=== PATIENT | male | born 1940 | race Caucasian/White ===

== ENCOUNTER 2017-12-26 15:55 | Inpatient (IN) | payer MEDICARE ==
[2017-12-26] MEDS ORDERED: Acetaminophen 325 MG TAB PO PRN (16:35)
[2017-12-26] MEDS ORDERED: Milk Of Magnesia 30 ML UDCUP PO PRN (16:35)
[2017-12-26] MEDS ORDERED: Bisacodyl 5 MG TAB PO PRN (16:35)
[2017-12-26 18:30] LABS: Troponin I 0.012 ng/mL (< 0.028)
[2017-12-26 19:12] VITALS: BMI 20.1
[2017-12-26 20:12] LABS: Troponin I Less than 0.010 ng/mL (< 0.028)
[2017-12-26] MEDS: Atorvastatin Calcium 40 MG TAB PO SCH (20:42)
[2017-12-26] MEDS ORDERED: Sodium Chloride 0.9% 500 ML IV SCH (21:00)
--- NOTE | 2017-12-26 21:20 | HP ---
PRESENTING COMPLAINT: "I have balance problems." HISTORY OF PRESENT ILLNESS: Mr. Romain Cordova is a 77-year-old male with a past medical history of hypertension , hyperlipidemia, recently diagnosed dementia (2 months ago) and shingles on treatment, who presented to the emergency room from [place] as a transfer after his niece found him unable to express himself. He reports he has had progressively worsening difficulty expressing himself today, he was blanking out , felt dizzy and had balance issues; he then came to [facility] where he had a CT brain done, which was unremarkable; however, his physical examination showed several defects in movements, he failed vwqdzp-jh-[id number] alternating movements and hbbz-nw-clez test and was also unsteady on his feet due to concern for posterior circulation cerebrovascular accident, he was sent to [facility] Emergency Room. He denies fevers, chills, trauma, or loss of consciousness. PAST MEDICAL HISTORY: Hypertension, hyperlipidemia, dementia. PAST SURGICAL HISTORY: None. FAMILY HISTORY: Reviewed and noncontributory. SOCIAL HISTORY: Does not drink alcohol, smoke cigarettes, or use illicit drugs. ALLERGIES: None. CODE STATUS: FULL. REVIEW OF SYSTEMS: Ten-point review of systems was negative. PHYSICAL EXAMINATION: VITAL SIGNS: Stable. GENERAL: Sitting in bed in no acute distress. HEENT: Normocephalic, atraumatic. Not pale, anicteric. PERRLA. EOMI. RESPIRATORY: Vesicular breath sounds bilaterally. No wheezes, rales, or rhonchi. CARDIOVASCULAR: S1, S2 only. No focal deficits. ABDOMEN: Bowel sounds positive, not tender, not distended, no hepatomegaly. Vesicular rash in left upper quadrant. GENITOURINARY: Deferred. MUSCULOSKELETAL: No skeletal abnormalities moving all extremities. NEUROLOGIC: Alert and oriented x2. No obvious focal deficits, but unable to perform [id number]-[id number] alternating movements of his hands. DIAGNOSTIC DATA: Unremarkable imaging and EKG noncontributory. ASSESSMENT AND PLAN: 1. Ataxia. He has sudden onset of this earlier today around 10:00 a.m. The main concern is for posterior circulation ischemic event. CT head has been nonrevealing, so he will require an MRI brain. We will also obtain an echo, TTE , lipid profile, and TSH. We will also start him on aspirin, high dose statin. Obtain neurology consult with PT/OT/speech language therapy. We will also monitor him on telemetry. 2. Hypertension. Blood pressure currently controlled. We will resume home medications once confirmed. 3. Hyperlipidemia. Continue statin. Follow up lipid profile. 4. Shingles. It was diagnosed a week ago and he was prescribed Ganciclovir, but yet to start. We will start while he is in hospital. 5. Dementia, recently diagnosed. We will ensure delirium precautions while in hospital. He has no behavioral problems. BENJAMIN
[2017-12-26] MEDS: Sodium Chloride 0.9% 1,000 ML IV SCH (21:33)
[2017-12-26] MEDS: valACYclovir 500 MG TAB PO SCH (21:34)
[2017-12-26] MEDS: Donepezil HCl 10 MG TAB PO SCH (21:34)
[2017-12-27 04:56] LABS: #Lymphocytes 0.6 thou/uL (1.20-3.40); #Monocytes 0.6 thou/uL (0.11-0.59); #Neutrophils 4.5 thou/uL (1.40-6.50); %Basophils 0.4 % (0.0-1.0); %Eosinophils 0.9 % (0.0-10.0); %Lymphocytes 9.9 % (21.0-51.0); %Monocytes 9.8 % (0.0-10.0); Hemoglobin 13.5 g/dL (14.0-18.0); Mean Corpuscular HGB CONC 34.1 g/dL (32.0-36.0); Mean Corpuscular Volume 90.8 fl (80.0-94.0); Mean Platelet Volume 6.5 fL (7.4-10.4); Platelet Count 132 thou/uL (130-400); RBC Distribution Width 11.8 % (11.5-14.5); Red Blood Cell (RBC) Count 4.35 mill/uL (4.70-6.10); White Blood Cell (WBC) Count 5.7 thou/uL (4.8-10.8)
[2017-12-27 05:11] LABS: Triglycerides 193 mg/dL (Less than 150)
[2017-12-27 05:22] LABS: ALT (SGPT) 28 U/L (8-55); AST (SGOT) 28 U/L (5-34); Albumin 3.9 g/dL (3.4-4.8); Alkaline Phosphatase 106 U/L (40-150); Anion Gap 13 mmol/L (10-20); BUN (Urea Nitrogen) 18 mg/dL (8.4-25.7); Bilirubin, Total 0.8 mg/dL (0.2-1.2); Calc. Creatinine Clearance 36 mL/min (70-130); Calcium 8.7 mg/dL (7.8-10.44); Carbon Dioxide 25 mmol/L (23-31); Cardiac Risk 3.8 (Less than 4.5); Chloride 107 mmol/L (98-107); Cholesterol 119 mg/dl (< 200 Desired); Estimated GFR-MDRD 45; Globulin 2.4 g/dL (2.4-3.5); Glucose 167 mg/dL (83-110); HDL Cholesterol 31 mg/dL (>60 Neg Risk); Potassium 3.9 mmol/L (3.5-5.1); Protein, Total 6.3 g/dL (5.8-8.1); Sodium 141 mmol/L (136-145)
[2017-12-27 06:04] LABS: LDL Cholesterol, Calculated 49 mg/dL
[2017-12-27] MEDS: valACYclovir 500 MG TAB PO SCH ×2 (08:48→21:24)
[2017-12-27] MEDS: Amlodipine 5 MG TAB PO SCH (08:48)
[2017-12-27] MEDS: Aspirin 325 mg Enteric Coated Tablet PO SCH (08:49)
--- NOTE | 2017-12-27 10:40 | CON ---
DATE OF CONSULTATION: 12/27/2017 CONSULTING PHYSICIAN: Hospital Service. IMPRESSION: 1. Possible cerebellar stroke. 2. Hypertension. 3. Hyperlipidemia. 4. Mild dementia. PLAN: 1. MRI of the brain. 2. Carotid Doppler. 3. Echocardiogram. Mr. Cordova is a 77-year-old man, who transferred over from [place] with a reported recent onset of ataxia. He was thought to have a bit of dysmetria on the left. His initial CT scan done at [facility] was unremarkable. He is without any particular complaints this morning. PAST MEDICAL HISTORY: Coronary artery disease, cardiomyopathy, shingles, COPD, carpal tunnel syndrom e. PAST SURGICAL HISTORY: CABG. ALLERGIES: LATEX and PENICILLIN. SOCIAL HISTORY: Unremarkable. FAMILY HISTORY: Noncontributory. REVIEW OF SYSTEMS: He had no complaints of headache, nausea, vomiting, dizziness, chest pain. PHYSICAL EXAMINATION: GENERAL: He is a thin elderly gentleman, sitting up in bed, in no distress. VITAL SIGNS: Pulse 70, respirations 18, blood pressure 164/68. He is afebrile. HEENT: Pupils equal and reactive. Conjunctivae clear. Oropharynx is clear. NECK: Supple. EXTREMITIES: No cyanosis. NEUROLOGIC EXAM: He was alert and cooperative. Speech was fluent and clear. Cranial nerves were in tact without any facial asymmetry. Motor exam showed good antigravity strength in all 4 extremities. Ivmohi-xp-zlsa movements were smooth and no tremor was present. Plantar responses were downgoing. IMAGING: EKG shows normal sinus rhythm. SUMMARY: This is an elderly man, who presented with acute ataxia, which at this point appears to be better. I agree with the plan of workup.
--- NOTE | 2017-12-27 11:14 | PDOC.PN ---
- Subjective Encounter Start Date: 12/27/17 Encounter Start Time: 11:19 Subjective: No acute events overnight. -: No new complaints. - Objective Resuscitation Status: Resuscitation Status FULL:Full Resuscitation MAR Reviewed: Yes Vital Signs & Weight: Vital Signs (12 hours) Temp Pulse Pulse Resp BP BP BP 12/27/17 08:48 91 144/73 H 12/27/17 07:52 98.1 F 91 18 12/27/17 07:30 83 144/73 H 165/79 H 12/27/17 03:27 99 F 83 16 12/26/17 23:47 86 16 BP Pulse Ox 12/27/17 08:48 12/27/17 07:52 144/73 H 95 12/27/17 07:30 12/27/17 03:27 151/60 H 97 12/26/17 23:47 128/85 97 Weight Admit Weight 140 lb 4.8 oz Weight 140 lb 4.8 oz I&O: 12/26/17 12/27/17 12/28/17 06:59 06:59 06:59 Intake Total 900 Balance 900 Result Diagrams: 12/27/17 04:25 12/27/17 04:25 Phys Exam - Physical Examination Constitutional: NAD HEENT: PERRLA, moist MMs, sclera anicteric Neck: supple, full ROM Respiratory: no wheezing, no rales, no rhonchi, clear to auscultation bilateral Cardiovascular: RRR, no significant murmur, no rub Gastrointestinal: soft, non-tender, no distention, positive bowel sounds Musculoskeletal: no edema, pulses present Neurological: non-focal, normal sensation, moves all 4 limbs Psychiatric: normal affect, A&O x 3 Skin: no rash, normal turgor Dx/Plan (1) Ataxia Code(s): R27.0 - ATAXIA, UNSPECIFIED Status: Acute Comment: Improved but still w cerebellar deficits. Concern for possible posterior circulation CVA. Started on ASA and Statins. MRI brain and ECHo pending. Neurology on board. (2) Herpes zoster Code(s): B02.9 - ZOSTER WITHOUT COMPLICATIONS Status: Acute Qualifiers: Herpes zoster complications: without complications Qualified Code(s): B02.9 - Zoster without complications Comment: Continue Valacylovir. (3) Dementia Code(s): F03.90 - UNSPECIFIED DEMENTIA WITHOUT BEHAVIORAL DISTURBANCE Status: Acute Qualifiers: Dementia type: Alzheimer's disease Alzheimer's disease onset: unspecified onset Dementia behavioral disturbance: without behavioral disturbance Qualified Code(s): G30.9 - Alzheimer's disease, unspecified; F02.80 - Dementia in other diseases classified elsewhere without behavioral disturbance; F02.80 - Dementia in other diseases classified elsewhere without behavioral disturbance; F02.80 - Dementia in other diseases classified elsewhere without behavioral disturbance Comment: Son reports increased confusion over months. Does well when he sticks to his dauily routine. (4) HLD (hyperlipidemia) Code(s): E78.5 - HYPERLIPIDEMIA, UNSPECIFIED Status: Acute Qualifiers: Hyperlipidemia type: pure hyperglyceridemia Qualified Code(s): E78.1 - Pure hyperglyceridemia (5) HTN (hypertension) Code(s): I10 - ESSENTIAL (PRIMARY) HYPERTENSION Status: Acute Qualifiers: Hypertension type: essential hypertension Qualified Code(s): I10 - Essential (primary) hypertension Comment: Continue Amlodipine (6) Acute on chronic renal failure Code(s): N17.9 - ACUTE KIDNEY FAILURE, UNSPECIFIED; N18.9 - CHRONIC KIDNEY DISEASE, UNSPECIFIED Status: Acute Qualifiers: Acute renal failure type: unspecified Chronic kidney disease stage: stage 3 (moderate) Qualified Code(s): N17.9 - Acute kidney failure, unspecified; N18.3 - Chronic kidney disease, stage 3 (moderate); N18.3 - Chronic kidney disease, stage 3 (moderate) Comment: Improving w hydration. - Plan cont current plan of care, PT/OT, social media assistant, speech therapy, DVT proph w/ heparin * .
[2017-12-27] MEDS: Sodium Chloride 0.9% 1,000 ML IV SCH (12:40)
--- NOTE | 2017-12-27 12:40 | MRI ---
MRI BRAIN WITHOUT CONTRAST: HISTORY: Altered mental status. FINDINGS: Comparison is made with the exam of previous day. There is ventricular sulcal prominence due to cortical atrophy. The ventricular size is appropriate and the basilar cisterns patent. Multiple foci of T2 prolongation in the periventricular white matte r are consistent with chronic small-vessel ischemic disease. No restricted diffusion is seen. No evidence of infarct, hemorrhage, midline shift, or abnormal extr aaxial fluid collections is seen. The visualized paranasal sinuses and mastoid air cells are well ae rated. IMPRESSION: 1. No evidence of acute intracranial process. 2. Cortical atrophy. 3. Chronic small-vessel ischemic disease. POS: [facility]
[2017-12-27] MEDS: Donepezil HCl 10 MG TAB PO SCH (21:24)
[2017-12-27] MEDS: Atorvastatin Calcium 40 MG TAB PO SCH (21:24)
[2017-12-27] MEDS: Heparin 5,000 UNITS/ML VIAL SC SCH (21:24)
[2017-12-28] MEDS: Sodium Chloride 0.9% 1,000 ML IV SCH ×2 (03:26→14:25)
[2017-12-28 04:56] LABS: #Lymphocytes 0.9 thou/uL (1.20-3.40); #Monocytes 0.7 thou/uL (0.11-0.59); #Neutrophils 4.4 thou/uL (1.40-6.50); %Basophils 0.4 % (0.0-1.0); %Eosinophils 0.5 % (0.0-10.0); %Lymphocytes 14.5 % (21.0-51.0); %Monocytes 10.9 % (0.0-10.0); %Neutrophils 73.7 % (42.0-75.0); Hemoglobin 13.1 g/dL (14.0-18.0); Mean Corpuscular HGB CONC 33.9 g/dL (32.0-36.0); Mean Corpuscular Hemoglobin 30.8 pg (27.0-31.0); Mean Corpuscular Volume 90.7 fl (80.0-94.0); Mean Platelet Volume 6.7 fL (7.4-10.4); Platelet Count 127 thou/uL (130-400); RBC Distribution Width 11.8 % (11.5-14.5); Red Blood Cell (RBC) Count 4.25 mill/uL (4.70-6.10); White Blood Cell (WBC) Count 5.9 thou/uL (4.8-10.8)
[2017-12-28 05:05] LABS: Anion Gap 10 mmol/L (10-20); BUN (Urea Nitrogen) 16 mg/dL (8.4-25.7); Calc. Creatinine Clearance 41 mL/min (70-130); Calcium 8.6 mg/dL (7.8-10.44); Carbon Dioxide 27 mmol/L (23-31); Chloride 107 mmol/L (98-107); Estimated GFR-MDRD 53; Glucose 142 mg/dL (83-110); Potassium 3.5 mmol/L (3.5-5.1); Sodium 140 mmol/L (136-145)
[2017-12-28] MEDS: Aspirin 325 mg Enteric Coated Tablet PO SCH (09:00)
[2017-12-28] MEDS: valACYclovir 500 MG TAB PO SCH ×2 (09:00→20:55)
[2017-12-28] MEDS: Heparin 5,000 UNITS/ML VIAL SC SCH ×2 (09:00→20:54)
[2017-12-28] MEDS: Amlodipine 5 MG TAB PO SCH (09:00)
--- NOTE | 2017-12-28 09:44 | PDOC.PN ---
- Subjective Encounter Start Date: 12/28/17 Encounter Start Time: 09:42 Subjective: alert, - Objective Resuscitation Status: Resuscitation Status FULL:Full Resuscitation MAR Reviewed: Yes Vital Signs & Weight: Vital Signs (12 hours) Temp Pulse Resp BP BP Pulse Ox 12/28/17 09:00 108 H 150/71 H 12/28/17 08:00 98.6 F 108 H 16 94 L 12/28/17 07:35 98.2 F 88 18 150/71 H 96 12/28/17 03:47 98.6 F 16 147/66 H 94 L 12/27/17 23:58 98.7 F 87 16 142/55 H 94 L Weight Admit Weight 140 lb 4.8 oz Weight 140 lb 4.8 oz I&O: 12/27/17 12/28/17 12/29/17 06:59 06:59 06:59 Intake Total 900 2270 Balance 900 2270 Result Diagrams: 12/28/17 04:02 12/28/17 04:02 Phys Exam - Physical Examination Neck: no JVD Respiratory: clear to auscultation bilateral Cardiovascular: RRR, no significant murmur Gastrointestinal: soft, positive bowel sounds Musculoskeletal: no edema temor both hands, cogwheeling? Dx/Plan (1) Acute on chronic renal failure Code(s): N17.9 - ACUTE KIDNEY FAILURE, UNSPECIFIED; N18.9 - CHRONIC KIDNEY DISEASE, UNSPECIFIED Status: Acute Qualifiers: Acute renal failure type: unspecified Chronic kidney disease stage: stage 3 (moderate) Qualified Code(s): N17.9 - Acute kidney failure, unspecified; N18.3 - Chronic kidney disease, stage 3 (moderate); N18.3 - Chronic kidney disease, stage 3 (moderate) Comment: Improving w hydration. (2) Ataxia Code(s): R27.0 - ATAXIA, UNSPECIFIED Status: Acute Comment: Improved but still w cerebellar deficits. Concern for possible posterior circulation CVA. Started on ASA and Statins. MRI brain and ECHo pending. Neurology on board. (3) Dementia Code(s): F03.90 - UNSPECIFIED DEMENTIA WITHOUT BEHAVIORAL DISTURBANCE Status: Acute Qualifiers: Dementia type: Alzheimer's disease Alzheimer's disease onset: unspecified onset Dementia behavioral disturbance: without behavioral disturbance Qualified Code(s): G30.9 - Alzheimer's disease, unspecified; F02.80 - Dementia in other diseases classified elsewhere without behavioral disturbance; F02.80 - Dementia in other diseases classified elsewhere without behavioral disturbance; F02.80 - Dementia in other diseases classified elsewhere without behavioral disturbance Comment: Son reports increased confusion over months. Does well when he sticks to his dauily routine. (4) HLD (hyperlipidemia) Code(s): E78.5 - HYPERLIPIDEMIA, UNSPECIFIED Status: Acute Qualifiers: Hyperlipidemia type: pure hyperglyceridemia Qualified Code(s): E78.1 - Pure hyperglyceridemia (5) HTN (hypertension) Code(s): I10 - ESSENTIAL (PRIMARY) HYPERTENSION Status: Acute Qualifiers: Hypertension type: essential hypertension Qualified Code(s): I10 - Essential (primary) hypertension Comment: Continue Amlodipine - Plan carotid US ordered -: discussed with Dr Garza -: cont ASA, amlodipine, statin * .
--- NOTE | 2017-12-28 10:42 | PRG ---
DATE OF SERVICE: 12/28/2017. NEUROLOGIC FOLLOWUP NOTE CONSULTING PHYSICIAN: Hospitalist Service. SUBJECTIVE: Mr. Cordova is without any particular complaints today. OBJECTIVE: VITAL SIGNS: His vital signs have been stable and he has been afebrile overnight. His exam is nonfo efrain. NEUROLOGIC: He is oriented to person and knew that he was in the hospital. He did not know the rayna h or year. IMAGING: His MRI of the brain did not show any acute ischemic changes. He reportedly has had some t remor noticeable, but I do not see any parkinsonian features on exam. This gentleman appears to have some dementia and unsteadiness. He does not have anything focal on ex am and his tremor does not appear consistent with a Parkinson's type process. It may be worth puttin g him in intermediate for physical therapy before returning home. His workup is otherwise unremar kable.
--- NOTE | 2017-12-28 11:42 | ULT ---
BILATERAL CAROTID DUPLEX ULTRASOUND: DATE: 12/28/17 HISTORY: Ataxia. TECHNIQUE: Rosales scale ultrasound with color flow and spectral Doppler imaging of the extracranial carotid artery systems performed bilaterally. FINDINGS: There is plaque formation on either side. The peak systolic velocity in the right ICA measures 93 cm/second with an end-diastolic velocity of 2 2 cm/second and a systolic ratio of 1.32. The peak systolic velocity in the left ICA measures 94 cm/second with an end-diastolic velocity of 15 cm/second and a systolic ratio of 1.15. Flow in both vertebral arteries remains antegrade. IMPRESSION: No evidence of hemodynamically significant stenosis. POS: [facility]
--- NOTE | 2017-12-28 17:05 | EKG ---
Test Reason : Blood Pressure : / mmHG Vent. Rate : 068 BPM Atrial Rate : 068 BPM P-R Int : 170 ms QRS Dur : 084 ms QT Int : 432 ms P-R-T Axes : 071 020 065 degrees QTc Int : 459 ms Normal sinus rhythm Normal ECG Confirmed by OSCAR HARRIS D.O. ([id number]), editor producer KATARINA REA ([id number]) on 12/28/2017 5:04:39 PM Referred By: Confirmed By:OSCAR HARRIS D.O.
[2017-12-28] MEDS: Atorvastatin Calcium 40 MG TAB PO SCH (20:55)
[2017-12-28] MEDS: Donepezil HCl 10 MG TAB PO SCH (20:55)
[2017-12-29 05:04] LABS: #Eosinphils 0.1 thou/uL (0.0-0.7); #Lymphocytes 1.2 thou/uL (1.20-3.40); #Monocytes 0.7 thou/uL (0.11-0.59); #Neutrophils 3.8 thou/uL (1.40-6.50); %Basophils 0.1 % (0.0-1.0); %Lymphocytes 21.5 % (21.0-51.0); %Monocytes 11.9 % (0.0-10.0); %Neutrophils 65.4 % (42.0-75.0); Mean Corpuscular HGB CONC 33.8 g/dL (32.0-36.0); Mean Corpuscular Hemoglobin 30.7 pg (27.0-31.0); Mean Corpuscular Volume 90.7 fl (80.0-94.0); Mean Platelet Volume 7.2 fL (7.4-10.4); Platelet Count 139 thou/uL (130-400); RBC Distribution Width 11.8 % (11.5-14.5); Red Blood Cell (RBC) Count 4.25 mill/uL (4.70-6.10); White Blood Cell (WBC) Count 5.8 thou/uL (4.8-10.8)
[2017-12-29 05:16] LABS: Anion Gap 10 mmol/L (10-20); BUN (Urea Nitrogen) 15 mg/dL (8.4-25.7); Calc. Creatinine Clearance 41 mL/min (70-130); Calcium 8.4 mg/dL (7.8-10.44); Carbon Dioxide 26 mmol/L (23-31); Chloride 110 mmol/L (98-107); Estimated GFR-MDRD 52; Glucose 119 mg/dL (83-110); Potassium 3.4 mmol/L (3.5-5.1); Sodium 143 mmol/L (136-145)
[2017-12-29] MEDS: Sodium Chloride 0.9% 1,000 ML IV SCH (05:47)
[2017-12-29] MEDS: Heparin 5,000 UNITS/ML VIAL SC SCH ×2 (09:26→21:59)
[2017-12-29] MEDS: Amlodipine 5 MG TAB PO SCH (09:26)
[2017-12-29] MEDS: Aspirin 325 mg Enteric Coated Tablet PO SCH (09:26)
[2017-12-29] MEDS: valACYclovir 500 MG TAB PO SCH ×2 (09:27→21:59)
--- NOTE | 2017-12-29 10:36 | PDOC.PN ---
- Subjective Encounter Start Date: 12/29/17 Encounter Start Time: 09:15 -: old records requested/rev Patient seen and examined. No new complaints. No overnight events - Objective Resuscitation Status: Resuscitation Status FULL:Full Resuscitation MAR Reviewed: Yes Vital Signs & Weight: Vital Signs (12 hours) Temp Pulse Resp BP BP Pulse Ox 12/29/17 09:26 84 143/70 H 12/29/17 08:00 98.1 F 84 18 143/70 H 99 12/29/17 04:15 98.1 F 91 20 147/91 H 92 L 12/29/17 00:00 97.8 F 86 16 147/79 H 95 Weight Admit Weight 140 lb 4.8 oz Weight 140 lb 4.8 oz I&O: 12/28/17 12/29/17 12/30/17 06:59 06:59 06:59 Intake Total 2270 2140 Output Total 150 Balance 2270 1989 Result Diagrams: 12/29/17 03:58 12/29/17 03:58 EKG Reviewed by me: Yes Phys Exam - Physical Examination Constitutional: NAD HEENT: PERRLA, moist MMs, sclera anicteric Neck: no JVD, supple Respiratory: no wheezing, no rales, no rhonchi Cardiovascular: RRR, no significant murmur, no rub Gastrointestinal: soft, non-tender, no distention, positive bowel sounds Musculoskeletal: no edema, pulses present Neurological: non-focal, normal sensation, moves all 4 limbs Lymphatic: no nodes Psychiatric: normal affect Skin: no rash, normal turgor Dx/Plan (1) Ataxia Code(s): R27.0 - ATAXIA, UNSPECIFIED Status: Acute Comment: (2) CKD (chronic kidney disease) stage 3, GFR 30-59 ml/min Code(s): N18.3 - CHRONIC KIDNEY DISEASE, STAGE 3 (MODERATE) Status: Chronic (3) Dementia Code(s): F03.90 - UNSPECIFIED DEMENTIA WITHOUT BEHAVIORAL DISTURBANCE Status: Chronic Qualifiers: Dementia type: Alzheimer's disease Alzheimer's disease onset: unspecified onset Dementia behavioral disturbance: without behavioral disturbance Qualified Code(s): G30.9 - Alzheimer's disease, unspecified; F02.80 - Dementia in other diseases classified elsewhere without behavioral disturbance; F02.80 - Dementia in other diseases classified elsewhere without behavioral disturbance; F02.80 - Dementia in other diseases classified elsewhere without behavioral disturbance Comment: (4) HLD (hyperlipidemia) Code(s): E78.5 - HYPERLIPIDEMIA, UNSPECIFIED Status: Chronic Qualifiers: Hyperlipidemia type: pure hyperglyceridemia Qualified Code(s): E78.1 - Pure hyperglyceridemia (5) HTN (hypertension) Code(s): I10 - ESSENTIAL (PRIMARY) HYPERTENSION Status: Chronic Qualifiers: Hypertension type: essential hypertension Qualified Code(s): I10 - Essential (primary) hypertension Comment: - Plan cont current plan of care, plan discussed w/ family, PT/OT, social science teacher * has underlying dementia and he will need more therapy * will need placement * medication reviewed as below * symptomatic treatment * discussed with son. Review of Systems - Review of Systems ENT: negative: Ear Pain, Ear Discharge, Nose Pain, Nose Discharge, Nose Congestion, Mouth Pain, Mouth Swelling, Throat Pain, Throat Swelling, Other Respiratory: negative: Cough, Dry, Shortness of Breath, Hemoptysis, SOB with Excertion, Pleuritic Pain, Sputum, Wheezing Cardiovascular: negative: chest pain, palpitations, orthopnea, paroxysmal nocturnal dyspnea, edema, light headedness, other Gastrointestinal: negative: Nausea, Vomiting, Abdominal Pain, Diarrhea, Constipation, Melena, Hematochezia, Other Genitourinary: negative: Dysuria, Frequency, Incontinence, Hematuria, Retention , Other Musculoskeletal: negative: Neck Pain, Shoulder Pain, Arm Pain, Back Pain, Hand Pain, Leg Pain, Foot Pain, Other Skin: negative: Rash, Lesions, Addi, Bruising, Other - Medications/Allergies Allergies/Adverse Reactions: Allergies Allergy/AdvReac Type Severity Reaction Status Date / Time latex Allergy Verified 12/26/17 19:15 Penicillins Allergy Verified 12/26/17 19:25 Medications: Current Medications Acetaminophen (Tylenol) 650 mg PO Q4H PRN PRN Reason: Headache/Fever or Pain Amlodipine Besylate (Norvasc) 5 mg PO DAILY [facility] Last Admin: 12/29/17 09:26 Dose: 5 mg Aspirin (Ecotrin) 325 mg PO DAILY [facility] Last Admin: 12/29/17 09:26 Dose: 325 mg Atorvastatin Calcium (Lipitor) 40 mg PO HS [facility] Last Admin: 12/28/17 20:55 Dose: 40 mg Bisacodyl (Dulcolax) 10 mg PO DAILYPRN PRN PRN Reason: Constipation Donepezil HCl (Aricept) 10 mg PO HS [facility] Last Admin: 12/28/17 20:55 Dose: 10 mg Heparin Sodium (Porcine) (Heparin) 5,000 units SC BID [facility] Last Admin: 12/29/17 09:26 Dose: 5,000 units Magnesium Hydroxide (Milk Of Magnesium) 30 ml PO DAILYPRN PRN PRN Reason: Constipation Pantoprazole Sodium (Protonix) 40 mg PO DAILY [facility] Last Admin: 12/29/17 09:27 Dose: 40 mg Sodium Chloride (Flush - Normal Saline) 10 ml IVF PRN PRN PRN Reason: Saline Flush Valacyclovir HCl (Valtrex) 500 mg PO BID [facility] Last Admin: 12/29/17 09:27 Dose: 500 mg
[2017-12-29] MEDS: Donepezil HCl 10 MG TAB PO SCH (21:59)
[2017-12-29] MEDS: Atorvastatin Calcium 40 MG TAB PO SCH (21:59)
[2017-12-30 05:19] LABS: #Lymphocytes 1.7 thou/uL (1.20-3.40); #Monocytes 0.7 thou/uL (0.11-0.59); #Neutrophils 3.9 thou/uL (1.40-6.50); %Basophils 0.3 % (0.0-1.0); %Eosinophils 0.8 % (0.0-10.0); %Lymphocytes 26.8 % (21.0-51.0); %Monocytes 10.7 % (0.0-10.0); %Neutrophils 61.4 % (42.0-75.0); Hemoglobin 12.3 g/dL (14.0-18.0); Mean Corpuscular HGB CONC 33.2 g/dL (32.0-36.0); Mean Corpuscular Hemoglobin 30.3 pg (27.0-31.0); Mean Corpuscular Volume 91.2 fl (80.0-94.0); Mean Platelet Volume 6.7 fL (7.4-10.4); Platelet Count 167 thou/uL (130-400); RBC Distribution Width 11.8 % (11.5-14.5); Red Blood Cell (RBC) Count 4.04 mill/uL (4.70-6.10); White Blood Cell (WBC) Count 6.3 thou/uL (4.8-10.8)
[2017-12-30 05:25] LABS: Anion Gap 10 mmol/L (10-20); BUN (Urea Nitrogen) 18 mg/dL (8.4-25.7); Calc. Creatinine Clearance 38 mL/min (70-130); Calcium 8.5 mg/dL (7.8-10.44); Carbon Dioxide 26 mmol/L (23-31); Chloride 109 mmol/L (98-107); Estimated GFR-MDRD 48; Glucose 119 mg/dL (83-110); Potassium 3.4 mmol/L (3.5-5.1); Sodium 142 mmol/L (136-145)
[2017-12-30] MEDS ORDERED: Loperamide HCl 2 MG CAP PO PRN (07:58)
[2017-12-30] MEDS ORDERED: Loratadine 10 MG TAB PO PRN (07:58)
[2017-12-30] MEDS ORDERED: Ondansetron ODT 4 MG TAB PO PRN (07:58)
[2017-12-30] MEDS ORDERED: Temazepam 15 MG CAP PO PRN (07:58)
[2017-12-30] MEDS ORDERED: Diabetic Tussin 200 MG/10 ML UDCUP PO PRN (07:58)
[2017-12-30] MEDS ORDERED: Mag-Al 1200 mg/1200 mg/30 ML UDCUP PO PRN (07:58)
[2017-12-30] MEDS ORDERED: hydrALAZINE 20 MG/ML VIAL SLOW IVP PRN (07:58)
[2017-12-30] MEDS ORDERED: HYDROcodone/Acetaminophen 5/325 mg Tablet PO PRN (07:58)
[2017-12-30] MEDS ORDERED: Sodium Chloride 0.65% Nasal 44 ML BOT EA NARE PRN (07:58)
[2017-12-30] MEDS ORDERED: Chloraseptic Spray 180 ml Bottle PO PRN (07:58)
[2017-12-30] MEDS ORDERED: Ondansetron HCl/PF 4 MG/2 ML Vial IVP PRN (07:58)
[2017-12-30] MEDS ORDERED: Artificial Tears 18 DROP/0.9 ML EA EYE PRN (07:58)
[2017-12-30] MEDS ORDERED: Eucerin (Mineral Oil/Petrolatum,White) 30 gm Jar TOP PRN (07:58)
[2017-12-30] MEDS: Amlodipine 5 MG TAB PO SCH (09:36)
[2017-12-30] MEDS: Aspirin 325 mg Enteric Coated Tablet PO SCH (09:36)
[2017-12-30] MEDS: Heparin 5,000 UNITS/ML VIAL SC SCH ×2 (09:36→21:38)
[2017-12-30] MEDS: valACYclovir 500 MG TAB PO SCH ×2 (09:36→21:37)
[2017-12-30] MEDS: Famotidine 20 MG TAB PO SCH ×2 (09:36→21:37)
--- NOTE | 2017-12-30 10:13 | PDOC.PN ---
- Subjective Encounter Start Date: 12/30/17 Encounter Start Time: 07:00 Patient seen and examined. No new complaints. No overnight events - Objective Resuscitation Status: Resuscitation Status FULL:Full Resuscitation MAR Reviewed: Yes Vital Signs & Weight: Vital Signs (12 hours) Temp Pulse Resp BP Pulse Ox 12/30/17 09:36 94 12/30/17 07:57 97.3 F L 94 16 12/30/17 07:53 97.3 F L 94 16 146/70 H 98 12/30/17 04:00 97.9 F 93 20 126/62 95 12/30/17 00:00 97.5 F L 73 12 128/60 98 Weight Admit Weight 140 lb 4.8 oz Weight 140 lb 4.8 oz I&O: 12/29/17 12/30/17 12/31/17 06:59 06:59 06:59 Intake Total 2140 1130 Output Total 150 100 Balance 19890 Result Diagrams: 12/30/17 04:51 12/30/17 04:51 EKG Reviewed by me: Yes Phys Exam - Physical Examination Constitutional: NAD HEENT: PERRLA, moist MMs, sclera anicteric Neck: no JVD, supple Respiratory: no wheezing, no rales, no rhonchi Cardiovascular: RRR, no significant murmur, no rub Gastrointestinal: soft, non-tender, no distention, positive bowel sounds Musculoskeletal: no edema, pulses present Neurological: non-focal, normal sensation Lymphatic: no nodes Psychiatric: normal affect Skin: no rash, normal turgor Dx/Plan (1) Ataxia Code(s): R27.0 - ATAXIA, UNSPECIFIED Status: Acute Comment: (2) CKD (chronic kidney disease) stage 3, GFR 30-59 ml/min Code(s): N18.3 - CHRONIC KIDNEY DISEASE, STAGE 3 (MODERATE) Status: Chronic (3) Dementia Code(s): F03.90 - UNSPECIFIED DEMENTIA WITHOUT BEHAVIORAL DISTURBANCE Status: Chronic Qualifiers: Dementia type: Alzheimer's disease Alzheimer's disease onset: unspecified onset Dementia behavioral disturbance: without behavioral disturbance Qualified Code(s): G30.9 - Alzheimer's disease, unspecified; F02.80 - Dementia in other diseases classified elsewhere without behavioral disturbance; F02.80 - Dementia in other diseases classified elsewhere without behavioral disturbance; F02.80 - Dementia in other diseases classified elsewhere without behavioral disturbance Comment: (4) HLD (hyperlipidemia) Code(s): E78.5 - HYPERLIPIDEMIA, UNSPECIFIED Status: Chronic Qualifiers: Hyperlipidemia type: pure hyperglyceridemia Qualified Code(s): E78.1 - Pure hyperglyceridemia (5) HTN (hypertension) Code(s): I10 - ESSENTIAL (PRIMARY) HYPERTENSION Status: Chronic Qualifiers: Hypertension type: essential hypertension Qualified Code(s): I10 - Essential (primary) hypertension Comment: - Plan cont current plan of care, PT/OT, social welfare administrator * SNU evaluation * will consider discharge when arranged * medication reviewed as below * symptomatic treatment. Review of Systems - Review of Systems ENT: negative: Ear Pain, Ear Discharge, Nose Pain, Nose Discharge, Nose Congestion, Mouth Pain, Mouth Swelling, Throat Pain, Throat Swelling, Other Respiratory: negative: Cough, Dry, Shortness of Breath, Hemoptysis, SOB with Excertion, Pleuritic Pain, Sputum, Wheezing Cardiovascular: negative: chest pain, palpitations, orthopnea, paroxysmal nocturnal dyspnea, edema, light headedness, other Gastrointestinal: negative: Nausea, Vomiting, Abdominal Pain, Diarrhea, Constipation, Melena, Hematochezia, Other Genitourinary: negative: Dysuria, Frequency, Incontinence, Hematuria, Retention , Other Musculoskeletal: negative: Neck Pain, Shoulder Pain, Arm Pain, Back Pain, Hand Pain, Leg Pain, Foot Pain, Other Skin: negative: Rash, Lesions, Addi, Bruising, Other - Medications/Allergies Allergies/Adverse Reactions: Allergies Allergy/AdvReac Type Severity Reaction Status Date / Time latex Allergy Verified 12/26/17 19:15 Penicillins Allergy Verified 12/26/17 19:25 Medications: Current Medications Acetaminophen (Tylenol) 650 mg PO Q4H PRN PRN Reason: Headache/Fever or Pain Hydrocodone Bitart/Acetaminophen ([place] 5/325) 1 tab PO Q4H PRN PRN Reason: Moderate Pain (4-6) Al Hydroxide/Mg Hydroxide (Maalox) 15 ml PO Q4H PRN PRN Reason: Heartburn or Indigestion Amlodipine Besylate (Norvasc) 5 mg PO DAILY [facility] Last Admin: 12/30/17 09:36 Dose: 5 mg Artificial Tears (Tears Naturale) 0 drop EA EYE PRN PRN PRN Reason: Dry Eyes Aspirin (Ecotrin) 325 mg PO DAILY [facility] Last Admin: 12/30/17 09:36 Dose: 325 mg Atorvastatin Calcium (Lipitor) 40 mg PO HS [facility] Last Admin: 12/29/17 21:59 Dose: 40 mg Bisacodyl (Dulcolax) 10 mg PO DAILYPRN PRN PRN Reason: Constipation Donepezil HCl (Aricept) 10 mg PO HS [facility] Last Admin: 12/29/17 21:59 Dose: 10 mg Famotidine (Pepcid) 20 mg PO BID [facility] Last Admin: 12/30/17 09:36 Dose: 20 mg Guaifenesin (Robitussin Sf) 200 mg PO Q4H PRN PRN Reason: Cough Heparin Sodium (Porcine) (Heparin) 5,000 units SC BID [facility] Last Admin: 12/30/17 09:36 Dose: 5,000 units Hydralazine HCl (Apresoline) 10 mg SLOW IVP Q4H PRN PRN Reason: Systolic BP > 180 Loperamide HCl (Imodium) 2 mg PO PRN PRN PRN Reason: Diarrhea/Loose Stools Loratadine (Claritin) 10 mg PO DAILYPRN PRN PRN Reason: Sinus Symptoms Magnesium Hydroxide (Milk Of Magnesium) 30 ml PO DAILYPRN PRN PRN Reason: Constipation Mineral Oil/White Petrolatum (Eucerin Cream) 0 gm TOP BIDPRN PRN PRN Reason: Dry Skin Ondansetron HCl (Zofran Odt) 4 mg PO Q6H PRN PRN Reason: Nausea/Vomiting Ondansetron HCl (Zofran) 4 mg IVP Q6H PRN PRN Reason: Nausea/Vomiting Pantoprazole Sodium (Protonix) 40 mg PO DAILY [facility] Last Admin: 12/30/17 09:36 Dose: 40 mg Phenol (Chloraseptic [place] 180 Ml Bot) 0 ml PO PRN PRN PRN Reason: Sore Throat Sodium Chloride (Flush - Normal Saline) 10 ml IVF PRN PRN PRN Reason: Saline Flush Last Admin: 12/29/17 22:01 Dose: 10 ml Sodium Chloride ([place] Nasal [place] 0.65%) 0 ml EA NARE QIDPRN PRN PRN Reason: Nasal Congestion Temazepam (Restoril) 15 mg PO HSPRN PRN PRN Reason: Insomnia Valacyclovir HCl (Valtrex) 500 mg PO BID [facility] Last Admin: 12/30/17 09:36 Dose: 500 mg
--- NOTE | 2017-12-30 11:53 | DIS ---
DATE OF ADMISSION: 12/26/2017 DATE OF DISCHARGE: 12/30/2017 PRIMARY CARE PHYSICIAN: Lyle Orr M.D. DISCHARGE DISPOSITION: custodial home/rehabilitation. PRIMARY DISCHARGE DIAGNOSES: 1. [place]xias/unsteadiness. 2. Senile dementia. SECONDARY DISCHARGE DIAGNOSES: Chronic kidney disease, stage 3; hypertension; dyslipidemia. PRIMARY PROCEDURE/OPERATION: None. RADIOLOGICAL INVESTIGATION: Overall, left ventricular function is moderately depressed. MRI brain i s showing cortical atrophy, white matter ischemic changes without any acute stroke. Carotid Doppler negative for any stenosis. SIGNIFICANT LABORATORIES: WBC 6.3, hemoglobin 12.3, platelets 167. Sodium 142, potassium 3.4, BUN 1 8, creatinine 1.42, calcium 8.5. LFTs normal. LDL 49, triglyceride of 193, TSH normal. Cardiac enz ymes negative. DISCHARGE MEDICATIONS: Coreg 3.125 mg p.o. b.i.d., lisinopril 5 mg p.o. daily, aspirin 81 mg p.o. da sohail, Lipitor 20 mg p.o. at bedtime, Aricept 10 mg p.o. at bedtime, omeprazole 20 mg p.o. daily, saw p almetto 450 mg p.o. daily, valacyclovir 500 mg p.o. b.i.d. CONTRAINDICATIONS: None. CODE STATUS: FULL CODE. INPATIENT CONSULTANTS: Dr. Donell Garza, neurologist, was consulted, and he recommended that there i s no stroke and patient needs PT, OT, and intermediate home placement. TEST RESULTS PENDING ON DISCHARGE: None. ALLERGIES: LATEX AND PENICILLIN. DISCHARGE PLAN: Post hospital, the patient will be discharged to intermediate home for PT, OT, an d subsequently patient can follow up with primary care physician. HOSPITAL COURSE: A 77-year-old male with above-mentioned medical problem, who was admitted for unste adiness and ataxia. The patient was admitted by Dr. Mckeon. He was admitted to stroke floor to ru le out stroke and we did an MRI that was negative for any stroke, but it did show cortical atrophy an d chronic ischemic white matter changes. Neurology saw this patient and they were not thinking that this patient has any Parkinson's disease or any stroke, but they recommended to do PT and OT for his ataxia and unsteadiness. Carotid Doppler was normal. Echocardiography showed depressed EF and that is why we started on discharge Coreg and lisinopril to improve his EF. We discontinued amlodipine, w hich he was taking prior to arrival to the hospital. Rest of medication was continued as per previou s. At this point, patient is medically stable. He is waiting for his placement. If we have placement a rranged today, then he will be able to go home today or tomorrow. Paper work for discharge done. The patient is seen and examined at bedside today. Please see my progress note from today for furthe r details.
[2017-12-30] MEDS: Donepezil HCl 10 MG TAB PO SCH (21:37)
[2017-12-30] MEDS: Atorvastatin Calcium 40 MG TAB PO SCH (21:37)
[2017-12-31 05:17] LABS: #Eosinphils 0.1 thou/uL (0.0-0.7); #Monocytes 0.6 thou/uL (0.11-0.59); #Neutrophils 4.4 thou/uL (1.40-6.50); %Basophils 0.4 % (0.0-1.0); %Eosinophils 0.8 % (0.0-10.0); %Lymphocytes 27.8 % (21.0-51.0); %Monocytes 7.9 % (0.0-10.0); %Neutrophils 63.2 % (42.0-75.0); Mean Corpuscular HGB CONC 32.5 g/dL (32.0-36.0); Mean Corpuscular Hemoglobin 29.6 pg (27.0-31.0); Mean Corpuscular Volume 91.1 fl (80.0-94.0); Mean Platelet Volume 6.6 fL (7.4-10.4); Platelet Count 187 thou/uL (130-400); RBC Distribution Width 11.9 % (11.5-14.5); Red Blood Cell (RBC) Count 4.07 mill/uL (4.70-6.10)
[2017-12-31 05:57] LABS: Anion Gap 12 mmol/L (10-20); BUN (Urea Nitrogen) 21 mg/dL (8.4-25.7); Calc. Creatinine Clearance 39 mL/min (70-130); Calcium 8.7 mg/dL (7.8-10.44); Carbon Dioxide 27 mmol/L (23-31); Chloride 108 mmol/L (98-107); Estimated GFR-MDRD 49; Glucose 123 mg/dL (83-110); Potassium 3.5 mmol/L (3.5-5.1); Sodium 143 mmol/L (136-145)
[2017-12-31 08:11] VITALS: BP 135/70; TEMP 98
--- NOTE | 2017-12-31 09:16 | PDOC.PN ---
- Subjective Encounter Start Date: 12/31/17 Encounter Start Time: 07:00 Patient seen and examined. No new complaints. No overnight events - Objective Resuscitation Status: Resuscitation Status FULL:Full Resuscitation MAR Reviewed: Yes Vital Signs & Weight: Vital Signs (12 hours) Temp Pulse Resp BP BP Pulse Ox 12/31/17 08:05 98 F 82 18 12/31/17 08:00 98 F 82 18 135/70 97 12/31/17 03:28 98.4 F 80 17 115/57 L 95 12/30/17 23:57 97.6 F 70 14 137/67 97 12/30/17 21:37 97.8 F 72 14 94 L Weight Admit Weight 140 lb 4.8 oz Weight 140 lb 4.8 oz I&O: 12/30/17 12/31/17 01/01/18 06:59 06:59 06:59 Intake Total 1130 1020 Output Total 100 Balance 1030 1020 Result Diagrams: 12/31/17 04:52 12/31/17 04:52 EKG Reviewed by me: Yes Phys Exam - Physical Examination Constitutional: NAD HEENT: PERRLA, moist MMs, sclera anicteric Neck: no JVD, supple Respiratory: no wheezing, no rales, no rhonchi Cardiovascular: RRR, no significant murmur, no rub Gastrointestinal: soft, non-tender, no distention, positive bowel sounds Musculoskeletal: no edema, pulses present Neurological: non-focal, normal sensation Lymphatic: no nodes Psychiatric: normal affect Skin: normal turgor Deviation from normal: rash noted on his back Dx/Plan (1) Ataxia Code(s): R27.0 - ATAXIA, UNSPECIFIED Status: Acute Comment: (2) CKD (chronic kidney disease) stage 3, GFR 30-59 ml/min Code(s): N18.3 - CHRONIC KIDNEY DISEASE, STAGE 3 (MODERATE) Status: Chronic (3) Dementia Code(s): F03.90 - UNSPECIFIED DEMENTIA WITHOUT BEHAVIORAL DISTURBANCE Status: Chronic Qualifiers: Dementia type: Alzheimer's disease Alzheimer's disease onset: unspecified onset Dementia behavioral disturbance: without behavioral disturbance Qualified Code(s): G30.9 - Alzheimer's disease, unspecified; F02.80 - Dementia in other diseases classified elsewhere without behavioral disturbance; F02.80 - Dementia in other diseases classified elsewhere without behavioral disturbance; F02.80 - Dementia in other diseases classified elsewhere without behavioral disturbance Comment: (4) HLD (hyperlipidemia) Code(s): E78.5 - HYPERLIPIDEMIA, UNSPECIFIED Status: Chronic Qualifiers: Hyperlipidemia type: pure hyperglyceridemia Qualified Code(s): E78.1 - Pure hyperglyceridemia (5) HTN (hypertension) Code(s): I10 - ESSENTIAL (PRIMARY) HYPERTENSION Status: Chronic Qualifiers: Hypertension type: essential hypertension Qualified Code(s): I10 - Essential (primary) hypertension Comment: (6) Herpes zoster Code(s): B02.9 - ZOSTER WITHOUT COMPLICATIONS Status: Acute (7) Systolic dysfunction Code(s): I51.9 - HEART DISEASE, UNSPECIFIED Status: Chronic - Plan 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 Review of Systems - Review of Systems Constitutional: negative: fever, chills, sweats, weakness, malaise, other ENT: negative: Ear Pain, Ear Discharge, Nose Pain, Nose Discharge, Nose Congestion, Mouth Pain, Mouth Swelling, Throat Pain, Throat Swelling, Other Respiratory: negative: Cough, Dry, Shortness of Breath, Hemoptysis, SOB with Excertion, Pleuritic Pain, Sputum, Wheezing Cardiovascular: negative: chest pain, palpitations, orthopnea, paroxysmal nocturnal dyspnea, edema, light headedness, other Gastrointestinal: negative: Nausea, Vomiting, Abdominal Pain, Diarrhea, Constipation, Melena, Hematochezia, Other Genitourinary: negative: Dysuria, Frequency, Incontinence, Hematuria, Retention , Other Musculoskeletal: negative: Neck Pain, Shoulder Pain, Arm Pain, Back Pain, Hand Pain, Leg Pain, Foot Pain, Other Skin: Rash. negative: Lesions, Addi, Bruising, Other - Medications/Allergies Allergies/Adverse Reactions: Allergies Allergy/AdvReac Type Severity Reaction Status Date / Time latex Allergy Verified 12/26/17 19:15 Penicillins Allergy Verified 12/26/17 19:25 Medications: Current Medications Acetaminophen (Tylenol) 650 mg PO Q4H PRN PRN Reason: Headache/Fever or Pain Hydrocodone Bitart/Acetaminophen ([place] 5/325) 1 tab PO Q4H PRN PRN Reason: Moderate Pain (4-6) Al Hydroxide/Mg Hydroxide (Maalox) 15 ml PO Q4H PRN PRN Reason: Heartburn or Indigestion Amlodipine Besylate (Norvasc) 5 mg PO DAILY [facility] Last Admin: 12/30/17 09:36 Dose: 5 mg Artificial Tears (Tears Naturale) 0 drop EA EYE PRN PRN PRN Reason: Dry Eyes Aspirin (Ecotrin) 325 mg PO DAILY [facility] Last Admin: 12/30/17 09:36 Dose: 325 mg Atorvastatin Calcium (Lipitor) 40 mg PO HS [facility] Last Admin: 12/30/17 21:37 Dose: 40 mg Bisacodyl (Dulcolax) 10 mg PO DAILYPRN PRN PRN Reason: Constipation Donepezil HCl (Aricept) 10 mg PO HS [facility] Last Admin: 12/30/17 21:37 Dose: 10 mg Famotidine (Pepcid) 20 mg PO BID [facility] Last Admin: 12/30/17 21:37 Dose: 20 mg Guaifenesin (Robitussin Sf) 200 mg PO Q4H PRN PRN Reason: Cough Heparin Sodium (Porcine) (Heparin) 5,000 units SC BID [facility] Last Admin: 12/30/17 21:38 Dose: 5,000 units Hydralazine HCl (Apresoline) 10 mg SLOW IVP Q4H PRN PRN Reason: Systolic BP > 180 Loperamide HCl (Imodium) 2 mg PO PRN PRN PRN Reason: Diarrhea/Loose Stools Loratadine (Claritin) 10 mg PO DAILYPRN PRN PRN Reason: Sinus Symptoms Magnesium Hydroxide (Milk Of Magnesium) 30 ml PO DAILYPRN PRN PRN Reason: Constipation Mineral Oil/White Petrolatum (Eucerin Cream) 0 gm TOP BIDPRN PRN PRN Reason: Dry Skin Ondansetron HCl (Zofran Odt) 4 mg PO Q6H PRN PRN Reason: Nausea/Vomiting Ondansetron HCl (Zofran) 4 mg IVP Q6H PRN PRN Reason: Nausea/Vomiting Pantoprazole Sodium (Protonix) 40 mg PO DAILY [facility] Last Admin: 12/30/17 09:36 Dose: 40 mg Phenol (Chloraseptic [place] 180 Ml Bot) 0 ml PO PRN PRN PRN Reason: Sore Throat Sodium Chloride (Flush - Normal Saline) 10 ml IVF PRN PRN PRN Reason: Saline Flush Last Admin: 12/29/17 22:01 Dose: 10 ml Sodium Chloride ([place] Nasal [place] 0.65%) 0 ml EA NARE QIDPRN PRN PRN Reason: Nasal Congestion Temazepam (Restoril) 15 mg PO HSPRN PRN PRN Reason: Insomnia Valacyclovir HCl (Valtrex) 500 mg PO BID [facility] Last Admin: 12/30/17 21:37 Dose: 500 mg
[2017-12-31] MEDS: Amlodipine 5 MG TAB PO SCH (09:40)
[2017-12-31] MEDS: Aspirin 325 mg Enteric Coated Tablet PO SCH (09:41)
[2017-12-31] MEDS: Famotidine 20 MG TAB PO SCH (09:42)
[2017-12-31] MEDS: Heparin 5,000 UNITS/ML VIAL SC SCH (09:42)
[2017-12-31] MEDS: valACYclovir 500 MG TAB PO SCH (09:44)
--- NOTE | 2017-12-31 12:08 | ADD-DIS ---
ADDENDUM Patient was planned for discharge yesterday. Yesterday, we had late approval for retirement estrella e, but the retirement home only was able to take him today. Today, patient's son will pick him up to the longterm. This patient herpes zoster is improving and he will finish his valacyclovir. Patient is seen and examined at bedside today. There is no change in my discharge summary, which was dictated yesterday. For further details, please see my discharge summary from yesterday and please see my progress note from today.
== END 2017-12-31 10:31 | DRG 92 ==
LOC: ERS 15:55 → 2SE 16:35
PROVIDERS: ADMIT Internal Medicine; ATTEND Internal Medicine
DX: R27.0 Ataxia, unspecified (principal); I42.9 Cardiomyopathy, unspecified; N17.9 Acute kidney failure, unspecified; F03.90 Unspecified dementia, unspecified severity, without behavioral disturbance, psychotic disturbance, mood disturbance, and anxiety; B02.9 Zoster without complications; N18.3 Chronic kidney disease, stage 3 (moderate); E78.5 Hyperlipidemia, unspecified; I12.9 Hypertensive chronic kidney disease with stage 1 through stage 4 chronic kidney disease, or unspecified chronic kidney disease; Z75.1 Person awaiting admission to adequate facility elsewhere
CPT/HCPCS: 36415; 70551; 80048; 80053; 80061; 84443; 85025; 85652; 93005; 93306; 93880; G8978-GP-CI; G8979-GP-CI; G8980-GP-CI; G8987-GO-CJ; G8988-GO-CI; G8996-GN-CI; G8997-GN-CI; J1644

== ENCOUNTER 2018-03-13 12:01 | Day surgery (SDC) | payer MEDICARE ==
[2018-03-12 16:30] VITALS: BMI 19.8
[2018-03-13] MEDS ORDERED: Ondansetron HCl/PF 4 MG/2 ML Vial ONE (12:34)
[2018-03-13] MEDS ORDERED: Fentanyl 100 MCG/2 ML VIAL ONE (12:34)
[2018-03-13] MEDS ORDERED: Lidocaine 1% PF 5 ML VIAL ONE (12:36)
[2018-03-13] MEDS ORDERED: Dexamethasone 20 MG/5 ML VIAL ONE (12:36)
[2018-03-13] MEDS ORDERED: ePHEDrine/0.9% NaCl/PF SYRINGE 50 mg/10 ml ONE ×2 (12:36→14:13)
[2018-03-13] MEDS ORDERED: PROPOFOL 200 MG/20 ML VIAL ONE (12:36)
[2018-03-13] MEDS ORDERED: PHENYLEPHRINE-NS 100 MCG/ML 10 ML SYRINGE ONE (12:36)
[2018-03-13 13:04] LABS: Hemoglobin 13.9 g/dL (14.0-18.0)
[2018-03-13 13:36] LABS: Anion Gap 13 mmol/L (10-20); BUN (Urea Nitrogen) 25 mg/dL (8.4-25.7); Calc. Creatinine Clearance 34 mL/min (70-130); Calcium 9.6 mg/dL (7.8-10.44); Carbon Dioxide 29 mmol/L (23-31); Chloride 104 mmol/L (98-107); Estimated GFR-MDRD 43; Glucose 130 mg/dL (83-110); Potassium 4.7 mmol/L (3.5-5.1); Sodium 141 mmol/L (136-145)
[2018-03-13] MEDS ORDERED: Lidocaine 1% w/Epinephrine 1:200K 30 ML VIAL ONE (13:41)
[2018-03-13] MEDS ORDERED: Bacitracin Zinc Ointment 30 gm TUBE ONE (13:41)
--- NOTE | 2018-03-14 10:31 | OP ---
PREOPERATIVE DIAGNOSIS: Left malignant ear lesion. 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 PROCEDURE PERFORMED: Wedge excision of left malignant ear lytic lesion measuring 6 cm with complex c losure. PROCEDURE IN DETAIL: After consent was obtained, patient was identified, brought to the OR and place d on the table in supine position. Monitored anesthesia care was delivered and the patient was prepp ed and draped in sterile fashion. The area of intended incision was infiltrated with 1% lidocaine w ith 1:100,000 epinephrine. We then delineated a triangular defect for the ear and made an incision t hrough the anterior and posterior skin and cartilage sent for histologic evaluation. It was found to have clear margins consistent with squamous cell carcinoma. We then obtained hemostasis and planned to have repair. The helix was reapproximated first and an absorbable permanent suture was put in th e cartilage to take the tension off the wound. The interrupted 6-0 Prolene was used to reapproximate the helical skin. We then ran 6-0 Prolene anteriorly and posteriorly to close the skin over the car tilage. Sterile dressings were applied. The patient was awakened and then taken to recovery room wh ere she remained in a stable condition prior to discharge home.
--- NOTE | 2018-03-24 13:06 | EKG ---
Test Reason : PREOP Blood Pressure : / mmHG Vent. Rate : 068 BPM Atrial Rate : 068 BPM P-R Int : 168 ms QRS Dur : 090 ms QT Int : 416 ms P-R-T Axes : 080 012 075 degrees QTc Int : 442 ms Normal sinus rhythm with sinus arrhythmia Normal ECG When compared with ECG of 26-DEC-2017 16:11, No significant change was found Confirmed by DR. Caio CHRISTIAN ([id number]) on 03/24/2018 1:05:39 PM Referred By: EDD Confirmed By:DR. Caio CHRISTIAN
== END 2018-03-13 17:04 | disposition home or self-care (01) ==
LOC: SDC 12:01
PROVIDERS: ATTEND Specialist
PROC: 0HB3XZZ Excision of Left Ear Skin, External Approach (ICD-10-PCS; principal; 2018-03-13)
DX: C44.229 Squamous cell carcinoma of skin of left ear and external auricular canal (principal); I10 Essential (primary) hypertension; E78.5 Hyperlipidemia, unspecified; F32.9 Major depressive disorder, single episode, unspecified; F17.220 Nicotine dependence, chewing tobacco, uncomplicated; Z88.0 Allergy status to penicillin; Z91.040 Latex allergy status; Z79.82 Long term (current) use of aspirin; Z79.899 Other long term (current) drug therapy
CPT/HCPCS: 80048; 85014; 85018; 88305; 88331; 88332; 93005; 93010; J1100; J2001; J2405; J2704; J3010